=== PATIENT | female | born 1980 ===

== ENCOUNTER 2018-04-28 09:39 | Emergency (ER) | payer OTHER ==
[2018-04-28 09:49] VITALS: PULSE 64; RESP 20; TEMP 98.4; O2SAT 98
--- NOTE | 2018-04-28 11:55 | ED PDOC ---
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 Patient does not wear glasses or contact lenses. Denies taking any medication for pain. pt denies fever, blurry vision or vomiting/ PMD: No Family Provider Past Medical History Reviewed: Historical Data, Nursing Documentation, Vital Signs Vital Signs: Last Vital Signs Temp 98.4 F 04/28/18 09:46 Pulse 64 04/28/18 09:46 Resp 20 04/28/18 09:46 BP 150/98 H 04/28/18 09:46 Pulse Ox 98 04/28/18 09:46 - Medical History PMH: No Chronic Diseases - Surgical History Surgical History: No Surg Hx - Family History Family History: States: Unknown Family Hx - Social History Current smoker - smoking cessation education provided: No Alcohol: None Drugs: Denies - Allergies Allergies/Adverse Reactions: Allergies Allergy/AdvReac Type Severity Reaction Status Date / Time No Known Allergies Allergy Verified 04/28/18 09:45 Review of Systems ROS Statement: Except As Marked, All Systems Reviewed And Found Negative Constitutional: Negative for: Fever, Chills Eyes: Positive for: Pain (right eye), Redness Psych: Negative for: Suicidal ideation (homicidal ideation) Physical Exam - Physical Exam Appears: Positive for: Well, Non-toxic Head Exam: Positive for: ATRAUMATIC, NORMAL INSPECTION, NORMOCEPHALIC Skin: Positive for: Normal Color, Warm, Dry Eye Exam: Positive for: EOMI, PERRL, Periorbital swelling (over lateral aspect of R eye, where the pterygion has extended), Other (r eye lateral aspect, pterygium on the lateral aspect. not covering sclera or pupil. ). Negative for : Nystagmus, Periorbital tenderness, Conjunctival injection, Scleral icterus Neurologic/Psych: Positive for: Alert, Oriented - ECG O2 Sat by Pulse Oximetry: 98 (RA) Pulse Ox Interpretation: Normal Medical Decision Making Medical Decision Making: Time: 1001 Initial Impression: pterygium r eye, chronic Initial Plan: --Tylenol --Reevaluation pt instructed to follow up w opthalmologist for further management of this problem. given referral to optho. Upon provider evaluation patient is medically stable, and requires no further treatment in the ED at this time. Patient will be discharged. Counseling was provided and all questions were answered regarding diagnosis and need for follow up with opthamologist. There is agreement to discharge plan. Return if symptoms persist or worsen. Scribe Attestation: Documented by Misa Tran, acting as a scribe for Gayle Florian MD Provider Scribe Attestation: All medical record entries made by the Scribe were at my direction and personally dictated by me. I have reviewed the chart and agree that the record accurately reflects my personal performance of the history, physical exam, medical decision making, and the department course for this patient. I have also personally directed, reviewed, and agree with the discharge instructions and disposition. Disposition - Clinical Impression Clinical Impression: Pterygium - Patient ED Disposition Is Patient to be Admitted: No Counseled Patient/Family Regarding: Need For Followup - Disposition Referrals: [facility] [Outside] Carmelo Lomax MD [Staff Provider] - Disposition: Routine/Home Disposition Time: 11:20 Condition: IMPROVED Additional Instructions: follow up with an opthalmologist in 2 days for further evaluation of your eye problem return to the ED with any worsening or concerning symptoms Instructions: Pterygium Forms: Plored (Malay) Print Language: GREENLANDIC
[2018-04-28 12:11] VITALS: BP 128/72
== END 2018-04-28 12:12 | disposition home or self-care (01) ==
LOC: H.ER 09:39
DX: H11.001 Unspecified pterygium of right eye (principal)